=== PATIENT | female | born 1955 | race Two or more races ===

== ENCOUNTER 2024-04-04 11:03 | Inpatient (IN) | payer OTHER, MEDICAID ==
[~2024-04-04] VITALS: Ht 157.5 cm; Wt 99.7 kg
[~2024-04-04 11:03] MED LIST: ENOXAPARIN SOD 40 MG/0.4 ML SYRINGE SC SCH
[2024-04-04] MEDS ORDERED: ACETAMINOPHEN 325 MG TAB PO PRN (13:15)
[2024-04-04] MEDS ORDERED: NITROGLYCERIN 0.4 MG SL TAB SL PRN (13:15)
[2024-04-04] MEDS ORDERED: ONDANSETRON HCL 4 MG/2 ML VIAL IV PRN (13:15)
[2024-04-04] MEDS ORDERED: MORPHINE SULFATE INJ 2 MG/ml SYRG IV PRN ×2 (13:15)
[2024-04-04 18:20] VITALS: BP 124/68; PULSE 71; RESP 16; TEMP 97.4; O2SAT 97
[2024-04-04 18:54] VITALS: BP 124/68; PULSE 71; RESP 16; TEMP 97.4; O2SAT 97
[2024-04-04 20:00] VITALS: PULSE 70; PULSE 78; RESP 18; O2SAT 97
[2024-04-04 21:09] LABS: Basophils # (auto) 0 10 ^3/uL (0-0.2); Basophils % (auto) 0.8 % (0.0-2.0); Eosinophils # (auto) 0.1 10 ^3/uL (0-0.8); Eosinophils % (auto) 2.9 % (0.0-7.0); Hematocrit 40.2 % (36.0-46.0); Hemoglobin 13.5 g/dL (12.2-16.2); Lymphocytes # (auto) 1.7 10 ^3/uL (0.4-5.4); Lymphocytes % (auto) 34.1 % (10.0-50.0); Mean Corpuscular Hemoglobin 32.5 pg (28.0-32.0); Mean Corpuscular Hgb Conc. 33.6 g/dL (32.0-36.0); Mean Corpuscular Volume 96.7 fL (80.0-100.0); Monocytes # (auto) 0.4 10 ^3/uL (0-1.3); Monocytes % (auto) 8.3 % (0.0-12.0); Neutrophils # (auto) 2.7 10 ^3/uL (1.6-8.6); Neutrophils % (auto) 53.9 % (37.0-80.0); Platelet Count (auto) 223 10^3/uL (140-450); Red Blood Cells 4.15 10^6/uL (4.0-5.20); Red Cell Distribution Width 12.6 % (11.8-14.3)
[2024-04-04 21:10] LABS: Chloride 111 mmol/L (98-107); Potassium 4.5 mmol/L (3.5-5.1); Sodium 143 mmol/L (136-145)
[2024-04-04 21:11] LABS: Anion Gap 6 (5-15); Carbon Dioxide 26 mmol/L (20-31)
[2024-04-04 21:12] LABS: Calcium 9.3 mg/dL (8.7-10.4)
[2024-04-04 21:16] LABS: BUN/Creatinine Ratio 23.1 (10.0-20.0); Blood Urea Nitrogen 34 mg/dL (9-23); Glucose 99 mg/dL (74-106)
[2024-04-04] MEDS: traZODone HCL 50 MG TAB PO SCH (22:00)
[2024-04-04] MEDS: METOPROLOL TARTRATE 25 MG TAB PO SCH (23:23)
--- NOTE | 2024-04-05 01:02 | DVHHP2 ---
History of Present Illness Reason for Visit: Palpitation/chest pain History of Present Illness 69 year-old female medical history of Hepatitis C, Depression Presents with complaints of chest pain and palpitations x1 day. Pt was laying down when she began to experience sudden onset of palpitations. Per EMS, Patient was in a fib RVR in route to the hospital. Pt denies a hx of AFIB. Pt denies a hx of stent placement or bypass. Pt denies drinking excessive caffeine. Pt admits to a hx of smoking. Patient was initially seen and treated a [facility] emergency department and transferred to [facility] as per HMO request Initial findings as follow W7.25, H&H 12.7/38.4, PLT 196, Na 141, K3.8, BUN/creatinine 41/1.67 GFR 33 Troponin 8/8 TSH 4.26 ECG sinus rhythm CXR no acute cardio pulmonary disease Hepatobiliary: Hep A/B/C Psych: Depression Smoke: 2 packs per day ALCOHOL: none Drugs: None Lives: with Family Review of Systems Constitutional: No: Fever, Chills, Sweats, Weakness, Malaise, Other Eyes: No: Pain, Vision change, Conjunctivae inflammation, Eyelid inflammation, Other, Redness ENT: No: Ear pain, Ear discharge, Nose pain, Nose discharge, Nose congestion, Mouth pain, Mouth swelling, Throat pain, Throat swelling, Other Respiratory: No: Cough, Dry, Shortness of breath, SOB with excertion, Wheezing, Hemoptysis, Pleuritic Pain, Sputum, Wheezing, Other Cardiovascular: Chest Pain, Palpitations; No: Orthopnea, Paroxysmal Noc. D yspnea, Edema, Lt Headedness, Other Gastrointestinal: No: Nausea, Vomiting, Abdominal Pain, Diarrhea, Constipation, Melena, Hematochezia, Other Genitourinary: No Dysuria, No Frequency, No Incontinence, No Hematuria, No Retention, No Other Musculoskeletal: No: other, neck pain, shoulder pain, arm pain, back pain, hand pain, leg pain, foot pain Skin: No: Rash, Lesions, Jaundice, Bruising, Other Neurological: No: Weakness, Numbness, Incoordination, Change in speech, Confusion, Seizures, Other Allergies: Coded Allergies: NO KNOWN ALLERGIES (Unverified , 04/04/24) Medications Current Medications Medications Dose Ordered Sig/Edmond Route Start Time Stop Time Status Last Admin Dose Admin Nitroglycerin 0.4 mg Q5MINP PRN SL 04/04/24 13:15 Morphine Sulfate 2 mg Q30M PRN IV 04/04/24 13:15 Metoprolol Tartrate 25 mg BID PO 04/04/24 22:00 04/04/24 23:23 25 MG Ondansetron HCl 4 mg Q4HPRN PRN IV 04/04/24 13:15 Morphine Sulfate 2 mg Q4HPRN PRN IV 04/04/24 13:15 Acetaminophen 650 mg Q4HP PRN PO 04/04/24 13:15 Famotidine 20 mg DAILY PO 04/05/24 10:00 Enoxaparin Sodium 40 mg BID SC 04/04/24 22:00 UNV Trazodone HCl 150 mg HS PO 04/04/24 22:00 Exam Vital Signs Vital Signs Date Time Temp Pulse Resp B/P (MAP) Pulse Ox O2 Delivery O2 Flow Rate FiO2 04/04/24 23:23 71 123/58 04/04/24 18:54 97.4 16 97 97.4 04/04/24 18:54 Room Air* 0 21 General Appearance: Alert, Oriented X3, Cooperative, No acute distress HEENT: Atraumatic, PERRLA, EOMI Respiratory: Clear to auscultation, Normal air movement Cardiovascular: Regular rate, Normal S1, Normal S2 Abdominal: Normal bowel sounds, Soft, No tenderness Extremities: No cyanosis, No edema Skin: No rashes, No breakdown Neuro: Normal gait, Normal speech, Strength at 5/5 X4 ext, Sensation intact, Cranial nerves 3-12 NL Psych/Mental Status: Mental status NL, Mood NL Labs/Xrays Labs Test 04/04/24 19:55 Range/Units White Blood Count 5.0 4.4-10.8 10^3/uL Red Blood Count 4.15 4.0-5.20 10^6/uL Hemoglobin 13.5 12.2-16.2 g/dL Hematocrit 40.2 36.0-46.0 % Mean Corpuscular Volume 96.7 80.0-100.0 fL Mean Corpuscular Hemoglobin 32.5 H 28.0-32.0 pg Mean Corpuscular Hemoglobin Concent 33.6 32.0-36.0 g/dL Red Cell Distribution Width 12.6 11.8-14.3 % Platelet Count 223 140-450 10^3/uL Mean Platelet Volume 8.4 6.9-10.8 fL Neutrophils (%) (Auto) 53.9 37.0-80.0 % Lymphocytes (%) (Auto) 34.1 10.0-50.0 % Monocytes (%) (Auto) 8.3 0.0-12.0 % Eosinophils (%) (Auto) 2.9 0.0-7.0 % Basophils (%) (Auto) 0.8 0.0-2.0 % Neutrophils # (Auto) 2.7 1.6-8.6 10 ^3/uL Lymphocytes # (Auto) 1.7 0.4-5.4 10 ^3/uL Monocytes # (Auto) 0.4 0-1.3 10 ^3/uL Eosinophils # (Auto) 0.1 0-0.8 10 ^3/uL Basophils # (Auto) 0 0-0.2 10 ^3/uL Nucleated Red Blood Cells 0.0 % Sodium Level 143 136-145 mmol/L Potassium Level 4.5 3.5-5.1 mmol/L Chloride Level 111 H 98-107 mmol/L Carbon Dioxide Level 26 20-31 mmol/L Anion Gap 6 5-15 Blood Urea Nitrogen 34 H 9-23 mg/dL Creatinine 1.47 H 0.550-1.02 mg/dL Glomerular Filtration Rate Calc 39 >90 mL/min BUN/Creatinine Ratio 23.1 H 10.0-20.0 Serum Glucose 99 74-106 mg/dL Calcium Level 9.3 8.7-10.4 mg/dL Troponin I High Sensitivity 3 L </=34 ng/L Assessment/Plan Assessment/Plan New onset a fib with RVR Acute kidney injury, on CKD (GFR 35 /) Elevated TSH History depression History hepatitis C Plan Admit telemetry Cardiology consult. Echocardiogram. Metoprolol for rate management. TSH, T4 level. Continue home medication. Monitor BMP. Trend BUN / creatinine. GI ppx pepcid / DVT ppx lovenox Plan discussed with: Patient My Orders Orders - MAYLIN CHAVEZ NP Procedure Category Date Status Time Trazodone Hcl PHA 04/04/24 In Process (Tim) 22:00 Drug Screen LAB 11/3/24 Logged 20:21 Date of Service: Apr 05, 2024 Billing Provider: JANY ALMANZA MD Common Visit Codes: NOT BILLABLE MAYLIN CHAVEZ NP Apr 05, 2024 01:02
[2024-04-05] MEDS: ENOXAPARIN SOD 40 MG/0.4 ML SYRINGE SC SCH (03:58)
[2024-04-05 05:00] VITALS: BP 111/52; PULSE 53; RESP 17; TEMP 97.9; O2SAT 96
[2024-04-05 05:21] LABS: Basophils # (auto) 0 10 ^3/uL (0-0.2); Basophils % (auto) 0.7 % (0.0-2.0); Eosinophils # (auto) 0.2 10 ^3/uL (0-0.8); Eosinophils % (auto) 3.1 % (0.0-7.0); Hematocrit 38.5 % (36.0-46.0); Hemoglobin 12.8 g/dL (12.2-16.2); Lymphocytes # (auto) 1.9 10 ^3/uL (0.4-5.4); Mean Corpuscular Hemoglobin 32.4 pg (28.0-32.0); Mean Corpuscular Hgb Conc. 33.3 g/dL (32.0-36.0); Mean Corpuscular Volume 97.3 fL (80.0-100.0); Monocytes # (auto) 0.4 10 ^3/uL (0-1.3); Monocytes % (auto) 8.5 % (0.0-12.0); Neutrophils # (auto) 2.6 10 ^3/uL (1.6-8.6); Neutrophils % (auto) 50.7 % (37.0-80.0); Nucleated Red Blood Cells % 0.1 %; Platelet Count (auto) 212 10^3/uL (140-450); Red Blood Cells 3.95 10^6/uL (4.0-5.20); Red Cell Distribution Width 12.4 % (11.8-14.3); White Blood Cell 5.1 10^3/uL (4.4-10.8)
[2024-04-05 05:35] LABS: Chloride 112 mmol/L (98-107); Potassium 4.4 mmol/L (3.5-5.1); Sodium 143 mmol/L (136-145)
[2024-04-05 05:36] LABS: Anion Gap 5 (5-15); Calcium 9.1 mg/dL (8.7-10.4); Carbon Dioxide 26 mmol/L (20-31)
[2024-04-05 05:40] LABS: INR 1.06 (0.9-1.15); Partial Thromboplastin Time 28.6 SEC (24.5-34.5); Prothrombin Time 11.2 sec (9.3-11.8)
[2024-04-05 05:41] LABS: Blood Urea Nitrogen 29 mg/dL (9-23); Glucose 96 mg/dL (74-106)
[2024-04-05 05:42] LABS: Magnesium 2.1 mg/dL (1.6-2.6)
[2024-04-05 08:00] VITALS: PULSE 51; PULSE 74; RESP 16; O2SAT 98
--- NOTE | 2024-04-05 08:18 | DVHINCON2 ---
Date of service: Apr 05, 2024 History of Present Illness 69 yo F with hx of morbid obesity, HTN, admitted for AFib RVR now in SR. pt was tx from [facility] to here. no hx of cad or chf. she skipped her outpt appt with me 2/2 to anxiety. Past Medical History reviewed Family History: Cervical cancer G8 SISTER FH: esophageal cancer G8 MOTHER Allergies: Coded Allergies: NO KNOWN ALLERGIES (Unverified , 04/04/24) Current Medications Current Medications Medications (Trade) Dose Ordered Sig/Edmond Route PRN Reason Start Time Stop Time Status Last Admin Nitroglycerin (Ntrostat Sublingual) 0.4 mg Q5MINP PRN SL FOR CHEST PAIN 04/04/24 13:15 Morphine Sulfate 2 mg Q30M PRN IV FOR CHEST PAIN 04/04/24 13:15 Metoprolol Tartrate (Lopressor Tablet) 25 mg BID PO 04/04/24 22:00 04/04/24 23:23 Ondansetron HCl (Zofran) 4 mg Q4HPRN PRN IV NAUSEA / VOMITING 04/04/24 13:15 Morphine Sulfate 2 mg Q4HPRN PRN IV SEVERE PAIN (7-10 PAIN SCALE) 04/04/24 13:15 Acetaminophen (Tylenol Tablet) 650 mg Q4HP PRN PO PAIN SCALE 1-3 OR TEMP>100.4 04/04/24 13:15 Famotidine (Pepcid Tablet) 20 mg DAILY PO 04/05/24 10:00 Trazodone HCl (Desyrel) 150 mg HS PO 04/04/24 22:00 Enoxaparin Sodium (Lovenox) 40 mg BID SC 04/05/24 04:00 04/05/24 03:58 Review of Systems 10 pt ros otherwise negative Vital Signs Vital Signs Date Time Temp Pulse Resp B/P (MAP) Pulse Ox O2 Delivery O2 Flow Rate FiO2 04/05/24 05:00 97.9 53 17 111/52 (71) 96 97.9 04/04/24 20:00 Room Air* 0 21 Physical Exam nad s1 s2 rrr ctab soft nt/nd n oedema Labs/Diagnostic Data Labs Test 04/05/24 04:53 Range/Units White Blood Count 5.1 4.4-10.8 10^3/uL Red Blood Count 3.95 L 4.0-5.20 10^6/uL Hemoglobin 12.8 12.2-16.2 g/dL Hematocrit 38.5 36.0-46.0 % Mean Corpuscular Volume 97.3 80.0-100.0 fL Mean Corpuscular Hemoglobin 32.4 H 28.0-32.0 pg Mean Corpuscular Hemoglobin Concent 33.3 32.0-36.0 g/dL Red Cell Distribution Width 12.4 11.8-14.3 % Platelet Count 212 140-450 10^3/uL Mean Platelet Volume 7.9 6.9-10.8 fL Neutrophils (%) (Auto) 50.7 37.0-80.0 % Lymphocytes (%) (Auto) 37.0 10.0-50.0 % Monocytes (%) (Auto) 8.5 0.0-12.0 % Eosinophils (%) (Auto) 3.1 0.0-7.0 % Basophils (%) (Auto) 0.7 0.0-2.0 % Neutrophils # (Auto) 2.6 1.6-8.6 10 ^3/uL Lymphocytes # (Auto) 1.9 0.4-5.4 10 ^3/uL Monocytes # (Auto) 0.4 0-1.3 10 ^3/uL Eosinophils # (Auto) 0.2 0-0.8 10 ^3/uL Basophils # (Auto) 0 0-0.2 10 ^3/uL Nucleated Red Blood Cells 0.1 % Prothrombin Time 11.2 9.3-11.8 sec Prothrombin Time INR 1.06 0.9-1.15 Activated Partial Thromboplast Time 28.6 24.5-34.5 SEC Sodium Level 143 136-145 mmol/L Potassium Level 4.4 3.5-5.1 mmol/L Chloride Level 112 H 98-107 mmol/L Carbon Dioxide Level 26 20-31 mmol/L Anion Gap 5 5-15 Blood Urea Nitrogen 29 H 9-23 mg/dL Creatinine 1.45 H 0.550-1.02 mg/dL Glomerular Filtration Rate Calc 39 >90 mL/min BUN/Creatinine Ratio 20.0 10.0-20.0 Serum Glucose 96 74-106 mg/dL Calcium Level 9.1 8.7-10.4 mg/dL Magnesium Level 2.1 1.6-2.6 mg/dL Troponin I High Sensitivity < 3 L </=34 ng/L Thyroid Stimulating Hormone (TSH) 1.48 0.55-4.78 uIU/mL Assessment new onset afib diastolic dysfunction HTN obesity morbid recommend xarelto 20 mg daily and low dose toprol or any beta hira outpt holter instructed pt of importance of meds as high risk fro recurrence, she agreed though she has not complied with RN either echo shows gross normal lvef Plan discussed with: Patient CARLOS ENRIQUE ALVAREZ MD Apr 05, 2024 08:18
[2024-04-05 09:00] VITALS: BP 100/64; PULSE 56; RESP 18; TEMP 97.7; O2SAT 91
[2024-04-05] MEDS: FAMOTIDINE 20 MG TAB PO SCH (10:04)
[2024-04-05 13:00] VITALS: BP 114/75; PULSE 56; RESP 17; TEMP 97.5; O2SAT 96
[2024-04-05] MEDS ORDERED: METO25TA5 PO (13:33)
[2024-04-05] MEDS ORDERED: RIV20T PO (13:33)
--- NOTE | 2024-04-05 13:34 | DVHDS2 ---
Discharge Summary Date of Admission Apr 04, 2024 at 18:11 Date of Discharge: Apr 05, 2024 Labs/Diagnostic Data: Laboratory Results Test 04/05/24 04:53 White Blood Count 5.1 10^3/uL (4.4-10.8) Red Blood Count 3.95 10^6/uL (4.0-5.20) Hemoglobin 12.8 g/dL (12.2-16.2) Hematocrit 38.5 % (36.0-46.0) Mean Corpuscular Volume 97.3 fL (80.0-100.0) Mean Corpuscular Hemoglobin 32.4 pg (28.0-32.0) Mean Corpuscular Hemoglobin Concent 33.3 g/dL (32.0-36.0) Red Cell Distribution Width 12.4 % (11.8-14.3) Platelet Count 212 10^3/uL (140-450) Mean Platelet Volume 7.9 fL (6.9-10.8) Neutrophils (%) (Auto) 50.7 % (37.0-80.0) Lymphocytes (%) (Auto) 37.0 % (10.0-50.0) Monocytes (%) (Auto) 8.5 % (0.0-12.0) Eosinophils (%) (Auto) 3.1 % (0.0-7.0) Basophils (%) (Auto) 0.7 % (0.0-2.0) Neutrophils # (Auto) 2.6 10 ^3/uL (1.6-8.6) Lymphocytes # (Auto) 1.9 10 ^3/uL (0.4-5.4) Monocytes # (Auto) 0.4 10 ^3/uL (0-1.3) Eosinophils # (Auto) 0.2 10 ^3/uL (0-0.8) Basophils # (Auto) 0 10 ^3/uL (0-0.2) Nucleated Red Blood Cells 0.1 % Prothrombin Time 11.2 sec (9.3-11.8) Prothrombin Time INR 1.06 (0.9-1.15) Activated Partial Thromboplast Time 28.6 SEC (24.5-34.5) Sodium Level 143 mmol/L (136-145) Potassium Level 4.4 mmol/L (3.5-5.1) Chloride Level 112 mmol/L (98-107) Carbon Dioxide Level 26 mmol/L (20-31) Anion Gap 5 (5-15) Blood Urea Nitrogen 29 mg/dL (9-23) Creatinine 1.45 mg/dL (0.550-1.02) Glomerular Filtration Rate Calc 39 mL/min (>90) BUN/Creatinine Ratio 20.0 (10.0-20.0) Serum Glucose 96 mg/dL (74-106) Calcium Level 9.1 mg/dL (8.7-10.4) Magnesium Level 2.1 mg/dL (1.6-2.6) Troponin I High Sensitivity < 3 ng/L (</=34) Thyroid Stimulating Hormone (TSH) 1.48 uIU/mL (0.55-4.78) Free Thyroxine (T4) Calculated 0.93 ng/dL (0.89-1.76) Other Laboratory Tests 04/05/24 04:53 Final Diagnosis/Problems List AFIB RVR Discharge Disposition: Home Discharge Instruct/Medications Diet: Consistent carbohydrate, Cardiac 2g Na,low cholest Activity: No Restrictions, As Tolerated Follow Up/Referral: CARDIOLOGY 2 WEEKS FOR ATRIAL FIBRILLATIION AND HOLTER MONITOR PLACEMENT Medications: PRESCRIBED Discharge Statement: "Patient was advised to return to the ER or call 911 if any headaches, dizziness, shortness of breath, chest pain, abdominal pain, bleeding, fevers, or worsening of medical condition. Patient was counseled about treatment plan, medications, possible side effects, patientverbalized understanding. All questions were answered to the best of my ability. This discharge took greater then 30 minutes in planning, reviewing documentation, counseling the patient, and discussing with other team members." ASSESSMENT ASSESSMENT Assessment AFIB RVR JANY ALMANZA MD Apr 05, 2024 13:34
--- NOTE | 2024-04-08 16:35 | DVHSR ---
APPROVED REPORT EXAM: Two-dimensional and M-mode echocardiogram with Doppler and color Doppler. Blood Pressure: 111/52 mmHg INDICATION Atrial Fibrillation RISK FACTORS Height: 5'2", Weight: 219 Mitral Valve MitralMitral Stenosis E/A ratio0.02D MVAcm2 Conclusion lvef 55% by visual estimate mild to moderate aortic regurg
== END 2024-04-05 16:20 | disposition home or self-care (01) | DRG 309 ==
LOC: TELE-WESTW 18:11
PROVIDERS: ADMIT Hospitalist; ATTEND Hospitalist
DX: I48.20 Chronic atrial fibrillation, unspecified (principal); N17.9 Acute kidney failure, unspecified; Z68.41 Body mass index [BMI] 40.0-44.9, adult; N18.9 Chronic kidney disease, unspecified; R94.6 Abnormal results of thyroid function studies; F32.A Depression, unspecified; F17.210 Nicotine dependence, cigarettes, uncomplicated; E66.01 Morbid (severe) obesity due to excess calories; I12.9 Hypertensive chronic kidney disease with stage 1 through stage 4 chronic kidney disease, or unspecified chronic kidney disease; B19.20 Unspecified viral hepatitis C without hepatic coma; Z80.0 Family history of malignant neoplasm of digestive organs; Z80.49 Family history of malignant neoplasm of other genital organs
CPT/HCPCS: 36415; 80048; 83735; 84439; 84443; 84484; 85025; 85610; 85730; 87081; 93306; G0378

== ENCOUNTER 2024-05-06 22:52 | Emergency (ER) | payer OTHER, MEDICAID ==
[~2024-05-06] VITALS: Ht 157.5 cm; Wt 96.1 kg
[~2024-05-06 22:52] MED LIST changes: -ENOXAPARIN SOD 40 MG/0.4 ML SYRINGE SC SCH; +METO25TA5 PO; +RIV20T PO
[2024-05-07 02:12] LABS: COVID19 ANTIGEN SOFIA FIA POSITIVE (NEGATIVE); Rapid Influenza A Negative (Negative); Rapid Influenza B Positive (Negative)
[2024-05-07 02:22] VITALS: BP 126/72; PULSE 94; RESP 18; TEMP 99.1; O2SAT 94
[2024-05-07] MEDS ORDERED: AZIT-43 PO (02:25)
[2024-05-07] MEDS ORDERED: OSEL75CA5 PO (02:25)
--- NOTE | 2024-05-07 02:25 | ED.PDOC ---
SOB-HPI HPI Comments This is a 69-year-old female presents to the ED chief complaint flu-like s ymptoms x6 days. Patient complaining of sore throat, fever, cough, and headache. She states family member at home with same symptoms. She reports has been taking over the counter medication for relief with success. She denies chest pain, difficulty breathing, shortness of breath, recent travel. Chief Complaint: Flu like Time Seen by MD: 23:48 Reviewed notes: Nurses Notes, Medications, Allergies Mode of Arrival: Ambulatory Constitutional: reports: fever; denies: chills, diaphoresis, fatigue, malaise, sweats, weakness, others EENTM: reports: nasal discharge, throat pain, throat swelling, voice changes; denies: blurred vision, double vision, ear bleeding, ear discharge, ear drainage, ear pain, ear ringing, eye pain, eye redness, hearing loss, mouth pain, mouth swelling, nose bleeding, nose congestion, nose pain, photophobia, tearing, others Respiratory: reports: cough; denies: hemoptysis, orthopnea, SOB at rest, shortness of breath, SOB with excertion, stridor, wheezing, others Cardiovascular: denies: chest pain, dizzy spells, diaphoresis, Dyspnea on exertion, edema, irregular heart beat, left arm pain, lightheadedness, palpitations, PND, syncope, others Gastrointestinal: denies: abdomen distended, abdominal pain, blood streaked bowels, constipated, diarrhea, dysphagia, difficulty swallowing, hematemesis, melena, nausea, poor appetite, poor fluid intake, rectal bleeding, rectal pain, vomiting, others Genitourinary: denies: abnormal vagina bleeding, burning, dyspareunia, dysuria, flank pain, frequency, hematuria, incontinence, pain, , vagina discharge, urgency, others Neurological: denies: dizziness, fainting, headache, left sided numbness, left sided weakness, numbness, paresthesia, pre-existing deficit, right sided numbness, right sided weakness, seizure, speech problems, tingling, tremors, weakness, others Musculoskeletal: denies: back pain, gout, joint pain, joint swelling, muscle pain, muscle stiffness, neck pain, others Integumetry: denies: bruises, change in color, change in hair/nails, dryness, laceration, lesions, lumps, rash, wounds, others Allergic/Immunocompromised: denies: Difficulty Healing, Frequent Infections, Hives, Itching, others Hematologic/Lymphatic: denies: anemia, blood clots, easy bleeding, easy bruising, swollen glands, others Endocrine: denies: excessive hunger, excessive sweating, excessive thirst, excessive urination, flushing, intolerance to cold, intolerance to heat, unexplained weight gain, unexplained weight loss, others Psychiatric: denies: anxiety, bipolar disorder, depression, hopeless, panic disorder, schizophrenia, sleepless, suicidal, others Physical Exam General Appearance: No Apparent Distress, Normal HEENT: Pharyngeal Erythema, TMs Normal Neck: Full Range of Motion, Non-Tender Respiratory: Chest Non-Tender, Lungs Clear, No Accessory Muscle Use, No Respiratory Distress, Normal Breath Sounds Cardiovascular: No Edema, No JVD, No Murmur, No Gallop, Normal Peripheral Pulses, Regular Rate/Rhythm Breast Exam: Deferred Gastrointestinal: No Organomegaly, Non Tender, No Pulsatile Mass, Normal Bowel Sounds, Soft Genitalia: Deferred Pelvic: Deferred Rectal: Deferred Extremities: Normal capillary refill, Normal inspection, Normal range of motion, Non-tender, No pedal edema Musculoskeletal : Apperance: Normal Neurologic: Alert, client analyst II-XII nml as Tested, No Motor Deficits, Normal Affect, Normal Mood, No Sensory Deficits Cerebellar Function: Normal Reflexes: Normal Skin: Dry, Normal Color, Warm Lymphatic: No Adenopathy Was a procedure done? Was a procedure done?: No Differential Dx Differential Diagnosis: Pneumonia X-Ray, Labs, Meds, VS Vital Signs Date Time Temp Pulse Resp B/P (MAP) Pulse Ox O2 Delivery O2 Flow Rate FiO2 05/07/24 02:22 99.1 94 18 126/72 (90) 94 99.1 05/07/24 02:22 94 18 94 Room Air 05/06/24 23:00 98.7 103 20 145/75 (98) 96 Lab Test 05/07/24 01:06 Range/Units Influenza Type A Antigen Negative Negative Influenza Type B Antigen Positive Negative SARS-CoV-2 Antigen (Rapid) Positive NEGATIVE X-Ray, Labs, Meds, VS Comment COVID-19 swab positive influenza A positive. Patient requesting discharge at this time. We will prescribing hold azithromycin. Start patient on Tamiflu. Advised to rest increase p.o. fluids with electrolytes. [id number] Tylen ol or Motrin as needed for pain or fever per labeled dosing instructions. Follow up with your PCP in 2-3 days as necessary. Advised patient on ER return precautions she indicated understanding agrees with discharge plan of care. Time of 1ST Reevaluation: 02:19 Reevaluation 1ST: Improved Patient Education/Counseling: Diagnosis, Treatment, Prognosis, Need For Follow Up Family Education/Counseling: Diagnosis, Treatment, Prognosis, Need For Follow Up Departure 1 Departure Time of Disposition: 02:20 Impression: Primary Impression: COVID-19 Additional Impression: Influenza Disposition: 01 HOME / SELF CARE / HOMELESS Condition: Stable e-Prescriptions Oseltamivir Phosphate (Tamiflu) 75 Mg Cap 1 CAP PO BID for 5 Days, #10 CAP Prov: ADRYAN ESCOBAR 05/07/24 Azithromycin (Azithromycin) 250 Mg Tab 250 MG PO DAILY MDD 500 for 5 Days, #6 TAB 0 Refills 2 TABLETS ORALLY ON DAY ONE, THEN 1 TABLET ORALLY DAILY FOR 4 DAYS Prov: ADRYAN ESCOBAR 05/07/24 Discharged With: Friend Critical Care Note Critical Care Time?: No Stability Stability form required: No Heart Score Heart Score: Heart Score Response (Comments) Value History N/A 0 EKG N/A 0 Age >65 2 Risk Factors N/A 0 Troponin N/A 0 Total 2 ADRYAN ESCOBAR May 07, 2024 02:25
== END 2024-05-07 02:32 | disposition home or self-care (01) ==
LOC: ER 22:52
DX: U07.1 COVID-19 (principal); J11.1 Influenza due to unidentified influenza virus with other respiratory manifestations
CPT/HCPCS: 36415; 87426; 87804